=== PATIENT | male | born 1975 | race Caucasian/White ===

== ENCOUNTER 2021-08-15 14:31 | Observation (INO) ==
[2021-08-15] MEDS ORDERED: ASPIRIN 325 MG TABLET ONE (16:00)
[2021-08-15] MEDS ORDERED: NITROGLYCERIN SL 0.4 MG TABLET SL ONE (16:00)
[2021-08-15] MEDS ORDERED: ONDANSETRON 4 MG/2 ML VIAL ONE (16:00)
[2021-08-15] MEDS ORDERED: ASPIRIN 325 MG TABLET PO STA (16:32)
[2021-08-15] MEDS ORDERED: NITROGLYCERIN SL 0.4 MG TABLET SL STA (16:32)
[2021-08-15] MEDS ORDERED: ONDANSETRON 4 MG/2 ML VIAL IV STA (16:32)
[2021-08-15] MEDS ORDERED: NITROGLYCERIN 2% OINT 1 INCH/GM PACK TOP STA (16:41)
[2021-08-15] MEDS ORDERED: MORPHINE 2 MG/1 ML SYRINGE IV STA (16:41)
[2021-08-15 17:00] LABS: Albumin 4.5 G/DL (3.4-5.0); Calcium 9.3 MG/DL (8.5-10.1); Osmolality,Calculated 274.1 MOS/KG (273-304); Potassium 3.7 MMOL/L (3.5-5.1); Total Protein 7.8 G/DL (6.4-8.2)
[2021-08-15 17:50] LABS: Basophils % 0.3 % (0.0-0.8); Eosinophils % 0.3 % (0.00-10.9); Hematocrit 49.5 VOL% (42.0-52.0); Immature Granulocytes % 0.6 %; Immature Granulocytes Absolute 0.08 #; Lymphocytes # 2.1 10*3/uL (1.4-4.0); Lymphocytes % 15.1 % (21.2-54.2); Mean Corpuscular HGB Conc 34.3 GM/DL (32-36); Mean Corpuscular Volume 91.5 FL (87-102); Mean Platelet Volume 11.4 FL (9.6-12.0); Monocytes % 4.7 % (1.7-12.7); Platelet Count 243 T/CUMM (130-400); Red Blood Count 5.41 MC/CUMM (3.8-5.5); Red Cell Distribution Width 13.2 % (9.3-17.3); White Blood Count 14.2 T/CUMM (4-12)
[2021-08-15] MEDS ORDERED: ONDANSETRON 4 MG/2 ML VIAL IV PRN (18:35)
[2021-08-15] MEDS ORDERED: DEXTROSE 50% 25 GM/50 ML VIAL IV PRN ×2 (18:35→18:38)
[2021-08-15] MEDS ORDERED: GLUCAGON 1 MG VIAL IM PRN ×2 (18:35→18:38)
[2021-08-15 18:36] LABS: PT Patient Result 11.1 SECS (10.5-12.0)
[2021-08-15] MEDS ORDERED: ENOXAPARIN 40 MG/0.4 ML SYRINGE SUBCUT SCH (19:00)
[2021-08-15] MEDS: MORPHINE 2 MG/1 ML SYRINGE IV PRN ×2 (19:15→23:34)
[2021-08-15] MEDS: ALPRAZolam 0.5 MG TABLET PO SCH (22:28)
[2021-08-16] MEDS: INSULIN REGULAR 100 UNIT/ML SUBCUT SCH ×2 (02:20→09:15)
[2021-08-16] MEDS: MORPHINE 2 MG/1 ML SYRINGE IV PRN (03:14)
[2021-08-16 07:00] LABS: Basophils % 0.4 % (0.0-0.8); Eosinophils # 0.1 10*3/uL (0.0-0.87); Hematocrit 44.7 VOL% (42.0-52.0); Hemoglobin 15.4 GM/DL (14.0-18.0); Immature Granulocytes % 0.4 %; Immature Granulocytes Absolute 0.03 #; Lymphocytes # 2.4 10*3/uL (1.4-4.0); Lymphocytes % 30.2 % (21.2-54.2); Mean Corpuscular HGB Conc 34.5 GM/DL (32-36); Mean Corpuscular Volume 92.5 FL (87-102); Mean Platelet Volume 11.1 FL (9.6-12.0); Monocytes % 7.5 % (1.7-12.7); Neutrophils % 60.5 % (38.7-73.9); Platelet Count 152 T/CUMM (130-400); Red Blood Count 4.83 MC/CUMM (3.8-5.5); Red Cell Distribution Width 12.9 % (9.3-17.3)
[2021-08-16 07:20] LABS: Calcium 9.1 MG/DL (8.5-10.1); Osmolality,Calculated 282.4 MOS/KG (273-304); Potassium 3.8 MMOL/L (3.5-5.1)
[2021-08-16 08:37] VITALS: BP 171/96
[2021-08-16] MEDS ORDERED: ACETAMINOPHEN 325 MG TABLET PO PRN (08:51)
[2021-08-16] MEDS ORDERED: CLOPIDOGREL 75 MG TABLET PO SCH (09:00)
[2021-08-16] MEDS ORDERED: PANTOPRAZOLE 40 MG TABLET PO SCH (09:00)
[2021-08-16] MEDS ORDERED: ASPIRIN EC 81 MG TABLET PO SCH (09:00)
[2021-08-16] MEDS ORDERED: METOPROLOL SUCCINATE XL 25 MG TABLET PO SCH (09:00)
[2021-08-16] MEDS ORDERED: ATORVASTATIN 40 MG TABLET PO SCH (09:00)
[2021-08-16] MEDS: ALPRAZolam 0.5 MG TABLET PO SCH (09:21)
[2021-08-16 09:26] LABS: Barbiturates Screen,Urine Negative (Negative); Benzodiazepines Screen,Urine Positive (Negative); Cannabinoid Screen,Urine Positive (Negative); Opiate Screen,Urine Positive (Negative); Phencyclidine Screen,Urine Negative (Negative)
[2021-08-16] MEDS ORDERED: KETOROLAC 15 MG/1 ML VIAL IV ONE (10:45)
[2021-08-16] MEDS ORDERED: hydrALAZINE 20 MG/1 ML VIAL IV PRN (11:01)
== END 2021-08-16 11:13 | disposition home or self-care (01) ==
LOC: N.ED 14:31 → N.EDINP 14:31 → SUATTDRO 18:35 → N.EDINP 22:01 → N.TELES 22:05
PROVIDERS: ADMIT Emergency Medicine; ATTEND Internal Medicine